=== PATIENT | female | born 1940 | race Caucasian/White ===

== ENCOUNTER 2017-12-02 14:39 | Emergency (ER) | payer MEDICARE, OTHER ==
[2017-12-02] MEDS: IBUPROFEN 600 MG TAB PO (16:33)
== END 2017-12-02 18:15 | disposition home or self-care (01) ==
LOC: E/R 14:39
DX: S19.9XXA Unspecified injury of neck, initial encounter (principal); S20.212A Contusion of left front wall of thorax, initial encounter; I10 Essential (primary) hypertension; V49.59XA Passenger injured in collision with other motor vehicles in traffic accident, initial encounter
CPT/HCPCS: 71045; 72125; 99284-25